=== PATIENT | male | born 1955 | race Caucasian/White ===

== ENCOUNTER → 2018-10-05 | Outpatient (CLI) | payer BC, OTHER ==
--- NOTE | 2018-10-05 22:48 | MR ---
EXAMINATION TYPE: MR knee RT wo con DATE OF EXAM: 10/05/2018 COMPARISON: None HISTORY: Knee pain and swelling of Right Knee with Limited ROM TECHNIQUE: Multiplanar, multisequence imaging of the right knee is performed without IV contrast. FINDINGS: MEDIAL MENISCUS: Posterior horn of the medial meniscus shows linear increased signal which extends th e articular surface compatible with tear. The meniscus appears somewhat attenuated. Difficult to excl ude posterior root tear of the medial meniscus LATERAL MENISCUS: Anterior and posterior horns are intact without tear. CRUCIATE LIGAMENTS: The anterior and posterior cruciate ligaments are intact and unremarkable. COLLATERAL LIGAMENTS: The medial collateral ligament and lateral collateral ligament complex are inta ct and unremarkable. EXTENSOR MECHANISM: Visualized quadriceps and patellar tendons are intact. EFFUSION: Small suprapatellar joint effusion. POPLITEAL CYST: Small semimembranosus gastrocnemius cyst is present. TRICOMPARTMENT SPACES: Joint space loss present in the medial compartment. CARTILAGE: Suspect some mild chondromalacia medial compartment BONE MARROW SIGNAL: Some minimal reactive marrow signal change present in the proximal tibia medially . OTHER: There is some subcutaneous edema present. IMPRESSION: Tear of the medial meniscus as described. Joint effusion and subcutaneous edema. Additional findings above.
== END | disposition home or self-care (01) ==
LOC: RADMRIMAIN 20:42
PROVIDERS: ATTEND Family Medicine
DX: S83.241A Other tear of medial meniscus, current injury, right knee, initial encounter (principal); M25.461 Effusion, right knee

== ENCOUNTER 2019-07-09 09:06 | Day surgery (SDC) | payer BC, OTHER ==
[2019-07-07 12:08] VITALS: BMI 31.3
[~2019-07-09 09:06] MED LIST: LACTATED RINGERS 1,000 ML IV SCH
[2019-07-09 09:26] VITALS: TEMP 97.8
--- NOTE | 2019-07-09 09:35 | P.GSHP ---
History of Present Illness H&P Date: 07/09/19 Chief Complaint: Colon cancer screening Patient here today for colonoscopy. Last colonoscopy 7 years ago. Patient had polyps at that time. Father with history of colon cancer. Patient without: Complaints. Past Medical History Past Medical History: Asthma, Hyperlipidemia, Hypertension History of Any Multi-Drug Resistant Organisms: None Reported Past Surgical History: Hernia Repair, Orthopedic Surgery Additional Past Surgical History / Comment(s): RT KNEE SX. COLONOSCOPY Past Anesthesia/Blood Transfusion Reactions: No Reported Reaction Smoking Status: Former smoker - Past Family History Father Family Medical History: Cancer Additional Family Medical History / Comment(s): COLON Medications and Allergies Home Medications Medication Instructions Recorded Confirmed Type Aspirin [Adult Low Dose Aspirin EC] 81 mg PO DAILY 07/07/19 07/07/19 History Atorvastatin [Lipitor] 40 mg PO HS 07/07/19 07/07/19 History Budesonide/Formoterol Fumarate 2 puff INHALATION BID 07/07/19 07/09/19 History [Symbicort 160-4.5 Mcg Inhaler] Cetirizine HCl [Zyrtec] 10 mg PO DAILY 07/07/19 07/07/19 History Cholecalciferol [Vitamin D3 (25 5,000 unit PO DAILY 07/07/19 07/09/19 History Mcg = 1000 Iu)] Escitalopram Oxalate [Lexapro] 10 mg PO DAILY 07/07/19 07/07/19 History Lisinopril 40 mg PO HS 07/07/19 07/07/19 History Allergies Allergy/AdvReac Type Severity Reaction Status Date / Time No Known Allergies Allergy Verified 07/09/19 09:16 Surgical - Exam Vital Signs Temp Pulse Resp BP Pulse Ox 97.8 F 88 18 136/83 97 07/09/19 09:25 07/09/19 09:25 07/09/19 09:25 07/09/19 09:25 07/09/19 09:25 Physical exam: General: Well-developed, well-nourished HEENT: Normocephalic, sclerae nonicteric Abdomen: Nontender, nondistended, umbilical hernia Extremities: No edema Neuro: Alert and oriented Assessment and Plan (1) Colon cancer screening Narrative/Plan: Will proceed with colonoscopy at this time Current Visit: Yes Status: Acute Code(s): Z12.11 - ENCOUNTER FOR SCREENING FOR MALIGNANT NEOPLASM OF COLON SNOMED Code(s): 445558646
[2019-07-09] MEDS ORDERED: LIDOCAINE 1% INJ 10MG/ML (20 ML MDV) ONE (09:37)
[2019-07-09] MEDS ORDERED: PROPOFOL 10 MG/ML 20 ML VIAL IV ONE (09:37)
--- NOTE | 2019-07-09 09:59 | P.PCN ---
Date of Procedure: 07/09/19 Procedure(s) Performed: PREOPERATIVE DIAGNOSIS: Colon cancer screening, family history of colon cancer POSTOPERATIVE DIAGNOSIS: Ascending colon polyp PROCEDURE: Colonoscopy with snare polypectomy ANESTHESIA: MAC SURGEON: Matthew Gusman M.D. SPECIMENS: Ascending colon polyp ENDOSCOPIC PROCEDURE: The patient was placed on the endoscopy table in the left decubitus position. The Olympus colonoscope was inserted into the anus and passed under direct visualization to the base of the cecum. The appendiceal orifice was visualized. From that point the scope was slowly withdrawn inspecting all surfaces carefully. There were no neoplastic inflammatory or polypoid lesions throughout the cecum. In the ascending colon a small polyp was seen and removed using the snare with cautery technique. The remainder of the ascending, transverse, descending, sigmoid and rectum appeared normal. There was no visible diverticulosis noted. Digital rectal examination was normal. The patient was taken to the recovery room in stable condition per anesthesia guidelines. RECOMMENDATIONS: Await biopsy results. Follow-up colonoscopy 5 years.
[2019-07-09 10:03] VITALS: RESP 16
[2019-07-09 10:18] VITALS: BP 125/76; PULSE 74
== END 2019-07-09 10:46 | disposition home or self-care (01) ==
LOC: ORWHC2ENDO 09:06
PROVIDERS: ATTEND Surgery
DX: Z12.11 Encounter for screening for malignant neoplasm of colon (principal); K63.5 Polyp of colon; Z80.0 Family history of malignant neoplasm of digestive organs; I10 Essential (primary) hypertension; E78.5 Hyperlipidemia, unspecified; J45.909 Unspecified asthma, uncomplicated; F32.9 Major depressive disorder, single episode, unspecified; Z87.891 Personal history of nicotine dependence; Z79.82 Long term (current) use of aspirin; Z79.1 Long term (current) use of non-steroidal anti-inflammatories (NSAID); Z79.51 Long term (current) use of inhaled steroids; Z79.52 Long term (current) use of systemic steroids; Z79.899 Other long term (current) drug therapy; Z88.8 Allergy status to other drugs, medicaments and biological substances
CPT/HCPCS: 88305; 45385; J2001; J2704

== ENCOUNTER → 2020-12-07 | Outpatient (CLI) | payer BC, OTHER ==
--- NOTE | 2020-12-07 12:33 | XR ---
EXAMINATION TYPE: XR Hip RT and AP Pelvis DATE OF EXAM: 12/07/2020 COMPARISON: NONE HISTORY: Pain TECHNIQUE: A single AP view of the pelvis is obtained. Two views of the right hip are obtained. FINDINGS: There is hypertrophic change of the acetabulum mild concentric narrowing of the joint spac e. No definite acute fracture or dislocation. SI joints symmetric. Sclerotic density involving the le ft iliac bone most typical of bone island. Hypertrophic change along the iliac wing. IMPRESSION: 1. Arthropathy correlate for femoral acetabular impingement.
--- NOTE | 2020-12-07 12:35 | XR ---
EXAMINATION TYPE: XR femur RT DATE OF EXAM: 12/07/2020 CLINICAL HISTORY: Pain TECHNIQUE: Two views of the right femur are obtained. COMPARISON: None FINDINGS: There is mild concentric narrowing the joint space. There is hypertrophic change of the ac etabulum. Arthropathy of the knee joint. There is a soft tissue calcification seen. No erosive change s. IMPRESSION: 1. No acute fracture.
== END | disposition home or self-care (01) ==
LOC: RADXRMAIN 10:24
PROVIDERS: ATTEND Internal Medicine
DX: M12.851 Other specific arthropathies, not elsewhere classified, right hip (principal)
CPT/HCPCS: 73502

== ENCOUNTER 2021-10-11 17:00 | Emergency (ER) | payer BC, OTHER ==
[2021-10-11 18:19] VITALS: RESP 18
[2021-10-11] MEDS ORDERED: ACETAMINOPHEN TAB 500 MG TAB PO STA (18:20)
[2021-10-11] MEDS ORDERED: IBUPROFEN 600 MG TAB PO STA (18:20)
[2021-10-11] MEDS ORDERED: SODIUM CHLORIDE 0.9% 1,000 ML IV ONE (18:22)
--- NOTE | 2021-10-11 18:41 | ED ---
General Adult HPI - General Chief complaint: Shortness of Breath Stated complaint: syncope, Covid exposure, SOB Time Seen by Provider: 10/11/21 18:10 Source: patient, RN notes reviewed, old records reviewed Mode of arrival: ambulatory Limitations: no limitations - History of Present Illness Initial comments: This is a 66-year-old male who presents to the emergency department complaining of having symptoms of cold. Patient states he was vaccinated however he's been exposed recently and he's been having quite a bit of a cough for the last 5 days feeling very fatigued and having a fever. Patient states today while in the bathroom he almost passed out he fell to the ground did not hurt anything and never actually lost consciousness but states he felt so fatigued and just laid there waiting for his . Patient states he had a comatose today but it was not back yet. Patient denies any shortness of breath. Patient denies any chest pain or palpitations. Patient denies any diarrhea today but states he did have some diarrhea yesterday and some nausea today. Patient has not lost any taste or smell. - Related Data Home Medications Medication Instructions Recorded Confirmed Budesonide/Formoterol Fumarate 2 puff INHALATION RT-BID 07/07/19 10/11/21 [Symbicort 160-4.5 Mcg Inhaler] Cetirizine HCl [Zyrtec] 10 mg PO DAILY 07/07/19 10/11/21 Escitalopram Oxalate [Lexapro] 10 mg PO DAILY 07/07/19 10/11/21 Atorvastatin Calcium [Lipitor] 80 mg PO HS 10/11/21 10/11/21 Losartan-Hctz 50-12.5 mg [Hyzaar 1 tab PO DAILY 10/11/21 10/11/21 50-12.5] Montelukast [Singulair] 10 mg PO DAILY 10/11/21 10/11/21 Previous Rx's Medication Instructions Recorded Dexamethasone [Decadron] 6 mg PO DAILY #7 tablet 10/11/21 Allergies Allergy/AdvReac Type Severity Reaction Status Date / Time No Known Allergies Allergy Verified 10/11/21 19:16 Review of Systems ROS Statement: Those systems with pertinent positive or pertinent negative responses have been documented in the HPI. ROS Other: All systems not noted in ROS Statement are negative. Past Medical History Past Medical History: Asthma, Hyperlipidemia, Hypertension History of Any Multi-Drug Resistant Organisms: None Reported Past Surgical History: Hernia Repair, Orthopedic Surgery Additional Past Surgical History / Comment(s): RT KNEE SX. COLONOSCOPY Past Anesthesia/Blood Transfusion Reactions: No Reported Reaction Past Psychological History: Depression Smoking Status: Former smoker Past Alcohol Use History: Occasional Past Drug Use History: None Reported - Past Family History Father Family Medical History: Cancer Additional Family Medical History / Comment(s): COLON General Exam - General Exam Comments Initial Comments: GENERAL: Patient is well-developed and well-nourished. Patient is nontoxic and well-hydr ated and is in mild distress. ENT: Neck is soft and supple. No significant lymphadenopathy is noted. Oropharynx is clear. Moist mucous membranes. Neck has full range of motion without eliciting any pain. EYES: The sclera were anicteric and conjunctiva were pink and moist. Extraocular movements were intact and pupils were equal round and reactive to light. Eyelids were unremarkable. PULMONARY: Unlabored respirations. Good breath sounds bilaterally. No audible rales rhonchi or wheezing was noted. CARDIOVASCULAR: There is a regular rate and rhythm without any murmurs gallops or rubs. ABDOMEN: Soft and nontender with normal bowel sounds. SKIN: Skin is clear with no lesions or rashes and otherwise unremarkable. NEUROLOGIC: Patient is alert and oriented x3. Cranial nerves II through XII are grossly intact. Motor and sensory are also intact. Normal speech, volume and content. Symmetrical smile. MUSCULOSKELETAL: Normal extremities with adequate strength and full range of motion. LYMPHATICS: No significant lymphadenopathy is noted PSYCHIATRIC: Normal psychiatric evaluation. Limitations: no limitations Course Vital Signs 10/11/21 10/11/21 18:12 18:24 Temperature 101.1 F H Pulse Rate 91 Respiratory 18 Rate Blood Pressure 124/73 Blood Pressure 106/68 [Right Arm Sitting] Blood Pressure 113/69 [Right Arm Standing] Blood Pressure 112/67 [Right Arm Supine] O2 Sat by Pulse 97 Oximetry Medical Decision Making - Medical Decision Making EKG shows normal sinus rhythm at 91 bpm ID interval 152 QRS is under 20 QT interval 384 QTC is 472. Patient's EKG shows no ST segment elevation or depression. Chest x-ray shows a subtle infiltrate. Patient received Decadron and monoclonal antibodies. - Lab Data Result diagrams: 10/11/21 18:57 10/11/21 18:57 Lab Results 10/11/21 10/11/21 10/11/21 Range/Units 18:33 18:57 18:57 WBC 8.3 (3.8-10.6) k/uL RBC 4.97 (4.30-5.90) m/uL Hgb 16.1 (13.0-17.5) gm/dL Hct 47.1 (39.0-53.0) % MCV 94.7 (80.0-100.0) fL MCH 32.4 (25.0-35.0) pg MCHC 34.3 (31.0-37.0) g/dL RDW 11.2 L (11.5-15.5) % Plt Count 142 L (150-450) k/uL MPV 8.2 Neutrophils % 84 % Lymphocytes % 8 % Monocytes % 6 % Eosinophils % 1 % Basophils % 1 % Neutrophils # 7.0 (1.3-7.7) k/uL Lymphocytes # 0.7 L (1.0-4.8) k/uL Monocytes # 0.5 (0-1.0) k/uL Eosinophils # 0.0 (0-0.7) k/uL Basophils # 0.1 (0-0.2) k/uL Sodium 133 L (137-145) mmol/L Potassium 3.7 (3.5-5.1) mmol/L Chloride 101 (98-107) mmol/L Carbon Dioxide 24 (22-30) mmol/L Anion Gap 8 mmol/L BUN 15 (9-20) mg/dL Creatinine 0.83 (0.66-1.25) mg/dL Est GFR (CKD-EPI)AfAm >90 (>60 ml/min/1.73 sqM) Est GFR (CKD-EPI)NonAf >90 (>60 ml/min/1.73 sqM) Glucose 119 H (74-99) mg/dL Calcium 8.5 (8.4-10.2) mg/dL Total Bilirubin 1.1 (0.2-1.3) mg/dL AST 44 (17-59) U/L ALT 31 (4-49) U/L Alkaline Phosphatase 70 (38-126) U/L Troponin I (0.000-0.034) ng/mL Total Protein 6.8 (6.3-8.2) g/dL Albumin 4.0 (3.5-5.0) g/dL Coronavirus (PCR) Detected A (Not Detectd) 10/11/21 Range/Units 18:57 WBC (3.8-10.6) k/uL RBC (4.30-5.90) m/uL Hgb (13.0-17.5) gm/dL Hct (39.0-53.0) % MCV (80.0-100.0) fL MCH (25.0-35.0) pg MCHC (31.0-37.0) g/dL RDW (11.5-15.5) % Plt Count (150-450) k/uL MPV Neutrophils % % Lymphocytes % % Monocytes % % Eosinophils % % Basophils % % Neutrophils # (1.3-7.7) k/uL Lymphocytes # (1.0-4.8) k/uL Monocytes # (0-1.0) k/uL Eosinophils # (0-0.7) k/uL Basophils # (0-0.2) k/uL Sodium (137-145) mmol/L Potassium (3.5-5.1) mmol/L Chloride (98-107) mmol/L Carbon Dioxide (22-30) mmol/L Anion Gap mmol/L BUN (9-20) mg/dL Creatinine (0.66-1.25) mg/dL Est GFR (CKD-EPI)AfAm (>60 ml/min/1.73 sqM) Est GFR (CKD-EPI)NonAf (>60 ml/min/1.73 sqM) Glucose (74-99) mg/dL Calcium (8.4-10.2) mg/dL Total Bilirubin (0.2-1.3) mg/dL AST (17-59) U/L ALT (4-49) U/L Alkaline Phosphatase (38-126) U/L Troponin I <0.012 (0.000-0.034) ng/mL Total Protein (6.3-8.2) g/dL Albumin (3.5-5.0) g/dL Coronavirus (PCR) (Not Detectd) Disposition Clinical Impression: Pneumonia due to COVID-19 virus Disposition: HOME SELF-CARE Instructions (If sedation given, give patient instructions): Coronavirus Disease 2019 (COVID-19) Prescriptions: Dexamethasone [Decadron] 6 mg PO DAILY #7 tablet Is patient prescribed a controlled substance at d/c from ED?: No Referrals: Be Levin MD [Primary Care Provider] - 1-2 days Time of Disposition: 20:30
[2021-10-11 19:08] LABS: Basophils # (A) 0.1 k/uL (0-0.2); Basophils % (A) 1 %; Eosinophils % (A) 1 %; HCT 47.1 % (39.0-53.0); HGB 16.1 gm/dL (13.0-17.5); Lymphocytes # (A) 0.7 k/uL (1.0-4.8); Lymphocytes % (A) 8 %; MCH 32.4 pg (25.0-35.0); MCHC 34.3 g/dL (31.0-37.0); MCV 94.7 fL (80.0-100.0); Mean Platelet Volume 8.2; Monocytes # (A) 0.5 k/uL (0-1.0); Monocytes % (A) 6 %; Neutrophils % (A) 84 %; Platelet Count 142 k/uL (150-450); RBC 4.97 m/uL (4.30-5.90); RDW 11.2 % (11.5-15.5); WBC 8.3 k/uL (3.8-10.6)
[2021-10-11 19:25] LABS: ALT 31 U/L (4-49); AST 44 U/L (17-59); African American GFR (CKD) >90 (>60 ml/min/1.73 sqM); Alkaline Phosphatase 70 U/L (38-126); Anion Gap 8 mmol/L; Blood Urea Nitrogen 15 mg/dL (9-20); Calcium 8.5 mg/dL (8.4-10.2); Carbon Dioxide 24 mmol/L (22-30); Chloride 101 mmol/L (98-107); Glucose 119 mg/dL (74-99); Non-African American GFR(CKD) >90 (>60 ml/min/1.73 sqM); Potassium 3.7 mmol/L (3.5-5.1); Sodium 133 mmol/L (137-145); Total Bilirubin 1.1 mg/dL (0.2-1.3); Total Protein 6.8 g/dL (6.3-8.2)
--- NOTE | 2021-10-11 19:59 | XR ---
EXAMINATION TYPE: XR chest 1V portable DATE OF EXAM: 10/11/2021 CLINICAL HISTORY: Short of breath. TECHNIQUE: Portable frontal view of the chest. COMPARISON: None FINDINGS: The cardiomediastinal silhouette is within normal limits for size. Pulmonary vasculature i s normal. There is no focal air space opacity. Mild interstitial coarsening. No pleural effusion. No pneumothorax seen. No acute displaced osseous fracture. IMPRESSION: No focal pulmonary opacity. Mild interstitial coarsening is nonspecific and may represent interstitia l edema, atypical pneumonia, or chronic interstitial change.
[2021-10-11] MEDS ORDERED: BAMLANIVIMAB (EUA) 700 MG, ETESEVIMAB (EUA) 1,400 MG in SODIUM CHLORIDE 0.9% 50 ML IVPB ONE (20:15)
[2021-10-11] MEDS ORDERED: SODIUM CHLORIDE 0.9% 50 ML IVPB ONE (20:15)
[2021-10-11] MEDS ORDERED: DEXAMETHASONE SOD PHOSPHATE 10 MG/ML 1 ML VIAL IVP STA (20:29)
[2021-10-11 22:58] VITALS: BP 118/70; PULSE 76; TEMP 97.5
== END 2021-10-11 22:57 | disposition home or self-care (01) ==
LOC: EC 17:00
DX: U07.1 COVID-19 (principal); J12.82 Pneumonia due to coronavirus disease 2019; I10 Essential (primary) hypertension; E78.5 Hyperlipidemia, unspecified; J45.909 Unspecified asthma, uncomplicated; F32.A Depression, unspecified; Z87.891 Personal history of nicotine dependence; Z79.899 Other long term (current) drug therapy
CPT/HCPCS: 36415; 93005; 80053; 84484; 85025; 87635; 71045; 99284; 96374; 96375; J1100; J3490

== ENCOUNTER 2023-09-18 06:39 | Day surgery (SDC) | payer MEDICARE, BC, OTHER ==
[2023-09-18] MEDS ORDERED: LACTATED RINGERS 1,000 ML IV SCH (07:16)
--- NOTE | 2023-09-18 07:37 | P.GSHP ---
History of Present Illness H&P Date: 09/18/23 CHIEF COMPLAINT: Colon screen HISTORY OF PRESENT ILLNESS: The patient is a 68-year-old male who presents for colon screen. Lower endoscopy was offered for further evaluation and management. PAST MEDICAL HISTORY: Please see list. PAST SURGICAL HISTORY: Please see list. MEDICATIONS: Please see list. ALLERGIES: Please see list. SOCIAL HISTORY: No illicit drug use FAMILY HISTORY: No reports of Crohn disease or ulcerative colitis. REVIEW OF ORGAN SYSTEMS: CONSTITUTIONAL: No reports of fevers or chills. PHYSICAL EXAM: VITAL SIGNS: Stable GENERAL: Well-developed pleasant in no acute distress. HEENT: No scleral icterus. Extraocular movements grossly intact. Moist buccal mucosa. NECK: Supple without lymphadenopathy. CHEST: Unlabored respirations. Equal bilateral excursions. CARDIOVASCULAR: Regular rate and rhythm. Distal 2+ pulses. ABDOMEN: Soft, nontender, nondistended. MUSCULOSKELETAL: No clubbing, cyanosis, or edema. ASSESSMENT: 1. Colon screen. PLAN: 1. Recommend proceeding with a lower endoscopy Past Medical History Past Medical History: Asthma, Eye Disorder, Hyperlipidemia, Hypertension, Sleep Apnea/CPAP/BIPAP Additional Past Medical History / Comment(s): mini stroke rt retina, hx of colon cancer in family. wears cpap History of Any Multi-Drug Resistant Organisms: None Reported Past Surgical History: Hernia Repair, Orthopedic Surgery Additional Past Surgical History / Comment(s): RT KNEE SX. COLONOSCOPY Past Anesthesia/Blood Transfusion Reactions: No Reported Reaction Smoking Status: Former smoker, Light tobacco smoker - Past Family History Father Family Medical History: Cancer Additional Family Medical History / Comment(s): COLON Medications and Allergies Home Medications Medication Instructions Recorded Confirmed Type Budesonide/Formoterol Fumarate 2 puff INHALATION RT-BID 07/07/19 09/18/23 History [Symbicort 160-4.5 Mcg Inhaler] Cetirizine HCl [Zyrtec] 10 mg PO DAILY 07/07/19 09/18/23 History Escitalopram Oxalate [Lexapro] 10 mg PO DAILY 07/07/19 09/18/23 History Atorvastatin Calcium [Lipitor] 80 mg PO HS 10/11/21 09/18/23 History Valsartan [Diovan] 160 mg PO DAILY 09/17/23 09/18/23 History Allergies Allergy/AdvReac Type Severity Reaction Status Date / Time No Known Allergies Allergy Verified 09/18/23 07:16 Surgical - Exam Vital Signs Temp Pulse Resp BP Pulse Ox 97.8 F 65 16 147/83 95 09/18/23 07:24 09/18/23 07:24 09/18/23 07:24 09/18/23 07:24 09/18/23 07:24
[2023-09-18] MEDS ORDERED: PROPOFOL 10 MG/ML 20 ML VIAL IV ONE (07:38)
[2023-09-18 07:45] VITALS: RESP 16; TEMP 97.8
--- NOTE | 2023-09-18 08:03 | P.PCN ---
Date of Procedure: 09/18/23 Description of Procedure: PREOPERATIVE DIAGNOSIS: Personal history of colon polyps Colonoscopy screening POSTOPERATIVE DIAGNOSIS: Tubular adenoma cecum Pandiverticulosis Sigmoid diverticulosis OPERATION: Colonoscopy to the ileocecal valve and appendiceal orifice, cecum Colonoscopy with cold forceps biopsy SURGEON: Angelita Estrada MD. ANESTHESIA: MAC. INDICATIONS: The patient is an 68-year-old male who presents personal history of colon polyps. Last colonoscopy 5 years. Benefits and risks were described and informed consent was obtained. DESCRIPTION OF PROCEDURE: The patient had undergone Sutab prep. The patient had been brought into the operating room and laid in the left lateral decubitus position. After adequate intravenous sedation, the rectum was examined with 2% lidocaine jelly. The prostate was unremarkable. External hemorrhoids were encountered. The rectal tone was within normal limits. No lesions were palpated in the rectal vault. An Olympus colonoscope was advanced until the cecum, ileocecal valve and appendiceal orifice were clearly viewed. The prep was fair. Sigmoid diverticulosis was encountered. Colonic polyps were found and removed. No evidence of focal colitis was found. Retroflexion of the scope demonstrated grade 1 internal hemorrhoids without active bleeding or inflammation. The colon was desufflated. The patient had tolerated the procedure well. Withdrawal time was over 6 minutes. FINDINGS: Aronchick preparation quality scale 2 (1-5) Internal hemorrhoids, grade 1 External hemorrhoids, grade 1. No arteriovenous malformations. Sigmoid diverticulosis with pandiverticulosis Removal of 2 polyps: - Cold forceps biopsy at cecum 2, 3-4 mm polyp. No focal colitis. RECOMMENDATIONS: Repeat colonoscopy in 3 years, 2025 Plan - Discharge Summary Discharge Rx Participant: No New Discharge Prescriptions: Continue Escitalopram Oxalate [Lexapro] 10 mg PO DAILY Cetirizine HCl [Zyrtec] 10 mg PO DAILY Budesonide/Formoterol Fumarate [Symbicort 160-4.5 Mcg Inhaler] 2 puff INH ALATION RT-BID Atorvastatin Calcium [Lipitor] 80 mg PO HS Valsartan [Diovan] 160 mg PO DAILY Discharge Medication List Budesonide/Formoterol Fumarate [Symbicort 160-4.5 Mcg Inhaler] 2 puff INHALATION RT-BID 07/07/19 [History] Cetirizine HCl [Zyrtec] 10 mg PO DAILY 07/07/19 [History] Escitalopram Oxalate [Lexapro] 10 mg PO DAILY 07/07/19 [History] Atorvastatin Calcium [Lipitor] 80 mg PO HS 10/11/21 [History] Valsartan [Diovan] 160 mg PO DAILY 09/17/23 [History] Follow up Appointment(s)/Referral(s): Charles Tompkins MD [Medical Doctor] - 1 Week Patient Instructions/Handouts: Colorectal Polyps (GEN), Diverticulosis Diet (GEN), Diverticulosis (DC) Activity/Diet/Wound Care/Special Instructions: Repeat colonoscopy in 3 years, 2025 Discharge Disposition: HOME SELF-CARE
[2023-09-18 08:27] VITALS: BP 120/71; PULSE 69
== END 2023-09-18 08:50 | disposition home or self-care (01) ==
LOC: ORWHC2ENDO 06:39
PROVIDERS: ATTEND Surgery Plastic and Reconstructive Surgery
DX: Z12.11 Encounter for screening for malignant neoplasm of colon (principal); K63.5 Polyp of colon; K57.30 Diverticulosis of large intestine without perforation or abscess without bleeding; K64.4 Residual hemorrhoidal skin tags; K64.0 First degree hemorrhoids; J45.909 Unspecified asthma, uncomplicated; I10 Essential (primary) hypertension; E78.5 Hyperlipidemia, unspecified; G47.30 Sleep apnea, unspecified; Z80.0 Family history of malignant neoplasm of digestive organs; Z98.890 Other specified postprocedural states; Z87.891 Personal history of nicotine dependence; Z79.51 Long term (current) use of inhaled steroids; Z79.899 Other long term (current) drug therapy; Z86.010 Personal history of colon polyps
CPT/HCPCS: 88305; 45380; J2704

== ENCOUNTER → 2023-10-21 | Outpatient (CLI) | payer MEDICARE, BC, OTHER ==
[2023-10-21 18:18] LABS: HCT 47.1 % (39.6-50.0); HGB 15.4 g/dL (13.0-17.0); MCH 31.4 pg (27.0-32.0); MCHC 32.7 g/dL (32.0-37.0); MCV 95.9 FL (80.0-97.0); Mean Platelet Volume 11.1 FL (9.5-12.2); NRBC Per 100 WBC 0 X 10*3/uL (0.00-0.01); Platelet Count 185 X 10*3/uL (140-440); RBC 4.91 X 10*6/uL (4.40-5.60); RDW 11.7 % (11.5-14.5); WBC 8.99 X 10*3/uL (4.50-10.00)
== END | disposition home or self-care (01) ==
LOC: LABPAT 14:14
PROVIDERS: ATTEND Surgery Plastic and Reconstructive Surgery
DX: Z01.812 Encounter for preprocedural laboratory examination (principal); K46.9 Unspecified abdominal hernia without obstruction or gangrene
CPT/HCPCS: 84132; 85027

== ENCOUNTER 2023-10-24 09:31 | Day surgery (SDC) | payer MEDICARE, BC, OTHER ==
[2023-10-20 15:01] VITALS: BMI 31.6
--- NOTE | 2023-10-24 05:38 | P.GSHP ---
History of Present Illness H&P Date: 10/24/23 CHIEF COMPLAINT: Ventral hernia HISTORY OF PRESENT ILLNESS: The patient is a 68-year-old male presents with a history of swelling and pain along the abdomen from a hernia of the abdomen. Symptoms have been present for over 6 months. Now he presents for surgical intervention. PAST MEDICAL HISTORY: Please see list. PAST SURGICAL HISTORY: Please see list. MEDICATIONS: Please see list. ALLERGIES: Please see list. SOCIAL HISTORY: No illicit drug use FAMILY HISTORY: No reports of Crohn disease or ulcerative colitis. REVIEW OF ORGAN SYSTEMS: REVIEW OF ORGAN SYSTEMS: CONSTITUTIONAL: Denies any fever or chills. Denies recent weight loss or weight gain. HEENT: Denies any trouble with vision, hearing or nosebleeds. No difficulty swallowing. LYMPHATIC: The patient denies any lumps and bumps around the neck. ENDOCRINE: Denies any thyroid disorders. Denies any blood sugar glucose intolerance. RESPIRATORY: Denies pneumonia. Denies any troubles with breathing or dyspnea on exertion. CARDIOVASCULAR: Denies any chest pain, palpitations, or recent heart attacks. Has history of abnormal EKG with recent cardiac clearance. GASTROINTESTINAL: Denies heart burn, constipation or bright red blood per rectum. GENITOURINARY: Denies any blood in urine or increased urinary frequency. MUSCULOSKELETAL: Denies any back pain, stiffness, joint arthritis. NEUROLOGIC: Denies any numbness or tingling along the distal extremities. No seizure disorders or headaches. PSYCHIATRIC: Has depression or suidical ideation. HEMATOLOGIC: Denies any abnormal bleeding or bruising. BREASTS: Denies any breast lumps, pain or nipple discharge. PHYSICAL EXAM: VITAL SIGNS: Stable GENERAL: Well-developed pleasant male in no acute distress. HEENT: No scleral icterus. Extraocular movements grossly intact. Moist buccal mucosa. NECK: Supple without lymphadenopathy. CHEST: Unlabored respirations. Equal bilateral excursions. CARDIOVASCULAR: Regular rate and rhythm. Distal 2+ pulses. ABDOMEN: Soft, nondistended. Palpable defect of the abdomen. No peritoneal signs. MUSCULOSKELETAL: No clubbing, cyanosis, or edema. SKIN: Well perfused. PSYCH: Alert and oriented to self, place and time ASSESSMENT: 1. Ventral hernia PLAN: 1. Recommend proceeding with robotic ventral hernia repair with mesh. 2. Benefits and risks of surgical intervention was discussed including possibility of open technique. 3. DVT prophylaxis. 4. Antibiotic prophylaxis. 5. Non narcotic pain management including abdominal wall block described 6. Blood sugar glucose described. 7. Weight loss management described. Past Medical History Past Medical History: Asthma, Eye Disorder, Hyperlipidemia, Hypertension, Sleep Apnea/CPAP/BIPAP Additional Past Medical History / Comment(s): mini stroke rt retina, hx of colon cancer in family. wears cpap History of Any Multi-Drug Resistant Organisms: None Reported Past Surgical History: Hernia Repair, Orthopedic Surgery Additional Past Surgical History / Comment(s): RT KNEE SX. COLONOSCOPY Past Anesthesia/Blood Transfusion Reactions: No Reported Reaction Smoking Status: Former smoker - Past Family History Father Family Medical History: Cancer Additional Family Medical History / Comment(s): COLON Medications and Allergies Home Medications Medication Instructions Recorded Confirmed Type Budesonide/Formoterol Fumarate 2 puff INHALATION RT-BID 07/07/19 09/18/23 History [Symbicort 160-4.5 Mcg Inhaler] Cetirizine HCl [Zyrtec] 10 mg PO DAILY 07/07/19 09/18/23 History Escitalopram Oxalate [Lexapro] 10 mg PO DAILY 07/07/19 09/18/23 History Atorvastatin Calcium [Lipitor] 80 mg PO HS 10/11/21 09/18/23 History Valsartan [Diovan] 160 mg PO DAILY 09/17/23 09/18/23 History Allergies Allergy/AdvReac Type Severity Reaction Status Date / Time No Known Allergies Allergy Verified 10/20/23 14:45
[~2023-10-24 09:31] MED LIST changes: +ACETAMINOPHEN TAB 500 MG TAB PO PRN; +DEXAMETHASONE SOD PHOSPHATE 4 MG/ML 1 ML VIAL IV ONE; +HEPARIN SODIUM,PORCINE/PF 5,000 UNIT/0.5 ML SYRINGE SQ PRN; +HYDROmorphone 0.5 MG/0.5 ML SYRINGE IVP PRN; -LACTATED RINGERS 1,000 ML IV SCH; +LIDOCAINE 1% (10MG/ML) FOR IV START INTRADERMA PRN; +MELOXICAM 7.5 MG TAB PO PRN; +MIDAZOLAM 2 MG/2 ML VIAL IV PRN; +ONDANSETRON 4 MG/2 ML VIAL IVP ONE; +ONDANSETRON 4 MG/2 ML VIAL IVP PRN; +TAMSULOSIN 0.4 MG CAP.ER.24H PO STA
[2023-10-24 10:23] LABS: Glucose,Whole Blood 97 mg/dL (70-110)
[2023-10-24 10:27] LABS: Basophils % (A) 0 %; Eosinophils # (A) 0.3 k/uL (0-0.7); Eosinophils % (A) 3 %; HCT 46.3 % (39.0-53.0); HGB 15.8 gm/dL (13.0-17.5); Lymphocytes # (A) 1.5 k/uL (1.0-4.8); Lymphocytes % (A) 17 %; MCH 32.6 pg (25.0-35.0); MCHC 34.2 g/dL (31.0-37.0); MCV 95.2 fL (80.0-100.0); Mean Platelet Volume 8.2; Monocytes # (A) 0.4 k/uL (0-1.0); Monocytes % (A) 4 %; Neutrophils # (A) 6.6 k/uL (1.3-7.7); Neutrophils % (A) 74 %; Platelet Count 162 k/uL (150-450); RBC 4.86 m/uL (4.30-5.90); RDW 11.8 % (11.5-15.5); WBC 8.8 k/uL (3.8-10.6)
[2023-10-24 10:42] LABS: ALT 51 U/L (4-49); AST 40 U/L (17-59); African American GFR (CKD) >90 (>60 ml/min/1.73 sqM); Albumin 4.3 g/dL (3.5-5.0); Alkaline Phosphatase 90 U/L (38-126); Anion Gap 11 mmol/L; Blood Urea Nitrogen 15 mg/dL (9-20); Calcium 9.2 mg/dL (8.4-10.2); Carbon Dioxide 22 mmol/L (22-30); Chloride 105 mmol/L (98-107); Glucose 99 mg/dL (74-99); Non-African American GFR(CKD) >90 (>60 ml/min/1.73 sqM); Potassium 3.8 mmol/L (3.5-5.1); Sodium 138 mmol/L (137-145); Total Bilirubin 1.5 mg/dL (0.2-1.3); Total Protein 7.2 g/dL (6.3-8.2)
[2023-10-24] MEDS: LACTATED RINGERS 1,000 ML IV SCH ×2 (10:46→13:00)
[2023-10-24] MEDS ORDERED: SODIUM CHLORIDE 0.9% (PF) 10 ML VIAL ONE (10:48)
[2023-10-24] MEDS ORDERED: fentaNYL (PF) 50 MCG/ML 2 ML AMP ONE (10:48)
[2023-10-24] MEDS ORDERED: PROPOFOL 10 MG/ML 20 ML VIAL IV ONE (10:48)
[2023-10-24] MEDS ORDERED: ROPIVACAINE 5 MG/ML 30 ML VIAL ONE (10:48)
[2023-10-24] MEDS ORDERED: DEXAMETHASONE SOD PHOSPHATE 4 MG/ML 1 ML VIAL ONE (10:48)
[2023-10-24] MEDS ORDERED: KETOROLAC 15 MG/ML 1 ML VIAL ONE (10:48)
[2023-10-24] MEDS ORDERED: ROCURONIUM 10 MG/ML (5 ML VIAL) IV ONE (10:48)
[2023-10-24] MEDS ORDERED: NEOSTIGMINE 1 MG/ML 10 ML VIAL ONE (10:48)
[2023-10-24] MEDS ORDERED: LIDOCAINE 1% INJ 10MG/ML (20 ML MDV) ONE (10:48)
[2023-10-24] MEDS ORDERED: GLYCOPYRROLATE 0.2 MG/ML 2 ML VIAL ONE (10:48)
[2023-10-24] MEDS ORDERED: PHENYLEPHRINE-0.9% NACL SYG 1,000 MCG/10 ML SYRINGE ONE (10:48)
--- NOTE | 2023-10-24 10:52 | P.ANPRN ---
Procedure Note - Anesthesia - Nerve Block Performed Bilateral Erector Spinae Single Time Out Performed: Yes (1030) Date of Procedure: 10/24/23 Procedure Start Time: 10:30 Procedure Stop Time: 10:40 Location of Patient: PreOp Indication: Acute Post-Operative Pain, Requested by Surgeon Sedation Type: Sedate with meaningful contact maintained Preparation: Sterile Prep Position: Prone Catheter: None Needle Gauge: 21 Ultrasound used to visualize needle placement: Yes Ultrasound used to observe medication spread: Yes Injectate: 0.5% Ropivacaine (see comment for volume) (26ml of block solution used on each side. The block solution containing 30 ML of 0.5% bupivacaine mixed with 20 ML of preservative-free normal saline, and 8 milligrams of dexamethasone) Blood Aspirated: No Pain Paresthesia on Injection Noted: No Resistance on Injection: Normal Image Stored and Saved: Yes Events: Uneventful and Well Tolerated (15 mL of 0.5% ropivacaine mixed with 10 mL of normal saline, and 4 MG of dexamethasone)
[2023-10-24] MEDS ORDERED: LIDOCAINE 2%-EPI 1:100,000 20 ML VIAL SQ ONE (11:21)
[2023-10-24 12:39] VITALS: TEMP 96.8
[2023-10-24 14:32] VITALS: BP 112/65; PULSE 81; RESP 18
--- NOTE | 2023-11-24 13:08 | P.OP ---
Date of Procedure: 10/24/23 Description of Procedure: SURGEON: ANGELITA ESTRADA MD PREOPERATIVE DIAGNOSES: 1. Initial ventral hernia with incarceration, 3-cm 2. Obesity due to excess calories, BMI 31.6 3. Hypertensive heart disease 4. Depressive disorder 5. Chronic obstructive pulmonary disease due to asthma 6. Hyperlipidemia 7. Obstructive sleep apnea 8. History of tobacco abuse disorder POSTOPERATIVE DIAGNOSES: 1. Initial ventral hernia with incarceration, 3 x 3 -cm 2. Obesity due to excess calories, BMI 31.6 3. Hypertensive heart disease 4. Depressive disorder 5. Chronic obstructive pulmonary disease due to asthma 6. Hyperlipidemia 7. Obstructive sleep apnea 8. History of tobacco abuse disorder OPERATION: 1. Robotic-assisted daVinci Xi laparoscopic repair of initial incarcerated incisional ventral hernia 2 x 2 cm with fascial imbrication 3 without mesh ANESTHESIA: General with local ESTIMATED BLOOD LOSS: 5 mL. SPECIMENS: None. COMPLICATIONS: None. Operative Findings: 1. Subcutaneous ventral hernia 3 cm fascial defect 2 cm INDICATIONS: The patient is a 68-year-old male who presents with a ventral hernia and symptomatic. Surgical intervention with laparoscopic versus robotic and open techniques were reviewed. Placement of mesh was also reviewed. Benefits and risks were thoroughly described. Informed consent was obtained. DESCRIPTION OF PROCEDURE: The patient was brought into the operating room and laid in supine position. After general induction, the abdomen had been prepped and draped in standard sterile fashion. Ioban draping was also placed. Prior to incision, a timeout protocol was confirmed with surgical team regarding the patient's name including procedures to be performed. The robot was primed prior to the procedure. A field block using local anesthetis was placed along hernia site including the proposed port sites. Initial incision was made with an #11 blade along the left upper quadrant. A 0 degree 5 mm laparoscopic trocar entry was performed. Diagnostic laparoscopy demonstrated a defect of the midline near the umbilicus. Robotic trochars 8 mm 3 were placed along the left lateral abdominal wall. Accessory trochar 12-mm was placed along the left upper quadrant. The GOWEXi XI robot was previously primed, prepped and draped then docked along the left side of the patient. I then sat at the robot Da Manuel XI console where working arms of the robot including Bovie cautery connected to robotic scissors, vessel sealer and graspers placed by the players assistant. The hernia bordering fascia was cleaned of peritoneal fat with fascial defect of 2 cm identified. Next, hemostasis was checked with cautery. The hernia defect was oversewn using #1 V-LOCwith fascial imbrication 3. Mesh placement was avoided due to the relatively small size of the defect. A final endoscopic imaging was obtained. All instruments and pneumoperitoneum were evacuated from the abdominal cavity. The da Manuel XI robot was undocked from the patient. I re-scrubbed into the case for closure of incisions. The incisions were reapproximated using 4-0 Monocryl in an interrupted subcuticular fashion. Liquid glue was applied to the skin. At the end of the procedure, needle, sponge, and instrument count had been verified correct by surgical lead. The patient was taken to the postanesthesia care unit in stable condition with abdominal binder. Plan - Discharge Summary Discharge Rx Participant: No New Discharge Prescriptions: New Acetaminophen Tab [Tylenol Tab] 1,000 mg PO Q6HR PRN #30 tablet PRN Reason: Pain Cyclobenzaprine [Flexeril] 10 mg PO TID #30 tab Ibuprofen [Motrin] 600 mg PO Q8HR PRN #30 tab PRN Reason: Pain Simethicone [Gas-X] 125 mg PO AC-TID PRN #20 capsule PRN Reason: Pain Continue Escitalopram Oxalate [Lexapro] 10 mg PO DAILY Cetirizine HCl [Zyrtec] 10 mg PO DAILY Budesonide/Formoterol Fumarate [Symbicort 160-4.5 Mcg Inhaler] 2 puff INHALATION RT-BID Atorvastatin Calcium [Lipitor] 80 mg PO HS Valsartan [Diovan] 160 mg PO DAILY Discharge Medication List Budesonide/Formoterol Fumarate [Symbicort 160-4.5 Mcg Inhaler] 2 puff INHALATION RT-BID 07/07/19 [History] Cetirizine HCl [Zyrtec] 10 mg PO DAILY 07/07/19 [History] Escitalopram Oxalate [Lexapro] 10 mg PO DAILY 07/07/19 [History] Atorvastatin Calcium [Lipitor] 80 mg PO HS 10/11/21 [History] Valsartan [Diovan] 160 mg PO DAILY 09/17/23 [History] Acetaminophen Tab [Tylenol Tab] 1,000 mg PO Q6HR PRN #30 tablet 10/24/23 [Rx] Cyclobenzaprine [Flexeril] 10 mg PO TID #30 tab 10/24/23 [Rx] Ibuprofen [Motrin] 600 mg PO Q8HR PRN #30 tab 10/24/23 [Rx] Simethicone [Gas-X] 125 mg PO AC-TID PRN #20 capsule 10/24/23 [Rx] Follow up Appointment(s)/Referral(s): Angelita Estrada MD [STAFF PHYSICIAN] - 10/28/23 2:00 pm Patient Instructions/Handouts: *Surgery [facility] - (Anesthesia) Discharge Instructions Outpatient Surgery, Laparoscopic Herniorrhaphy (IP), Abdominal Binder (DC), Ventral Hernia Repair (DC) Activity/Diet/Wound Care/Special Instructions: DO NOT REMOVE UMBILICAL DRESSING. Using antibacterial soap. No lifting over 4 pounds 4 weeks, Nov 24March shower. No bathtub soaks for 2 weeks, Nov 07 Wear abdominal binder daily for comfort except for showering. Use ice along incisions for today to prevent swelling. Take tylenol, aleve/ibuprofen, simethicone scheduled for 3 days for best pain relief. Tylenol last at 1020 am. Toradol last at 1145 am. Discharge Disposition: HOME SELF-CARE
== END 2023-10-24 14:43 | disposition home or self-care (01) ==
LOC: OR 09:31
PROVIDERS: ATTEND Surgery Plastic and Reconstructive Surgery
DX: K43.6 Other and unspecified ventral hernia with obstruction, without gangrene (principal); I11.9 Hypertensive heart disease without heart failure; J44.9 Chronic obstructive pulmonary disease, unspecified; G89.18 Other acute postprocedural pain; F32.A Depression, unspecified; H57.9 Unspecified disorder of eye and adnexa; E66.01 Morbid (severe) obesity due to excess calories; E78.5 Hyperlipidemia, unspecified; I10 Essential (primary) hypertension; G47.33 Obstructive sleep apnea (adult) (pediatric); Z80.0 Family history of malignant neoplasm of digestive organs; Z87.891 Personal history of nicotine dependence; Z79.51 Long term (current) use of inhaled steroids; Z79.899 Other long term (current) drug therapy; Z96.651 Presence of right artificial knee joint; Z98.890 Other specified postprocedural states; Z68.31 Body mass index [BMI] 31.0-31.9, adult
CPT/HCPCS: 49594; S2900; 64999; 80053; 85025; 88302